=== PATIENT | female | born 1975 | race Hispanic/Latino ===

== ENCOUNTER 2023-06-29 08:20 | Day surgery (SDC) | payer OTHER ==
[2023-06-28 09:39] VITALS: BMI 27.3
[2023-06-29] MEDS ORDERED: PROPOFOL 20 ML ONE (09:42)
[2023-06-29] MEDS ORDERED: fentaNYL 50 mcg/mL 1 mL Vial ONE (09:48)
== END 2023-06-29 12:23 | disposition home or self-care (01) ==
LOC: SDC 08:20
PROVIDERS: ATTEND Internal Medicine Gastroenterology
DX: Z12.11 Encounter for screening for malignant neoplasm of colon (principal); K21.9 Gastro-esophageal reflux disease without esophagitis; K62.1 Rectal polyp; K25.9 Gastric ulcer, unspecified as acute or chronic, without hemorrhage or perforation; K29.70 Gastritis, unspecified, without bleeding; K29.80 Duodenitis without bleeding; K26.9 Duodenal ulcer, unspecified as acute or chronic, without hemorrhage or perforation; K31.89 Other diseases of stomach and duodenum
CPT/HCPCS: 88305; J2704; J3010